=== PATIENT | male | born 1975 | race Caucasian/White ===

== ENCOUNTER 2018-04-18 17:29 | Emergency (ER) | payer BC ==
[2018-04-18 17:36] VITALS: BP 130/94
[2018-04-18] MEDS ORDERED: LEVO50TA86 PO (17:36)
[2018-04-18] MEDS ORDERED: DIPHTH/TETANUS/ACEL. PERTUSSIS IM ONLY ONE (17:50)
--- NOTE | 2018-04-18 18:09 | RADIOLOGY IMAGING REPORT ---
FACILITY: PATIENT NAME: Aubrey Calle : 1975 MR: [id number] V: [id number] EXAM DATE: ORDERING PHYSICIAN: BALBINA CLINTON TECHNOLOGIST: Location: [facility] [place] Patient: Aubrey Calle : 1975 Visit/Account:[id number] Date of Sevice: 04/18/2018 EXAMINATION: Left hand 3 views HISTORY: Puncture wound to the webspace between the first and second digits. COMPARISON: None. FINDINGS: No evidence of acute fracture or dislocation about the left hand. Normal alignment. Joint spaces ar e preserved. Soft tissue swelling along the web space of the left hand with a few bubbles of soft tissue air. No r adiopaque foreign body. IMPRESSION: 1. Soft tissue injury to the webspace of the left hand. 2. No underlying fracture or radiopaque foreign body. Report Dictated By: Tiburcio Santamaria MD at 04/18/2018 6:01 PM Report E-Signed By: Tiburcio Santamaria MD at 04/18/2018 6:05 PM WSN:[id number]
[2018-04-18] MEDS ORDERED: KETOROLAC 30 MG/ML VIAL IM ONE (18:10)
--- NOTE | 2018-04-18 18:13 | ER Report ---
History and Physical Time Seen By MD: 17:30 Hx. of Stated Complaint: CUT FROM SCREWDRIVER TO LEFT HAND. HPI/ROS CHIEF COMPLAINT: Left hand puncture HISTORY OF PRESENT ILLNESS: Patient is a 42-year-old male presents to ED with complaint of the left hand puncture that occurred about 30 minutes ago. He states that he accidentally punctured his hand with a screwdriver. He is having some pain in his left hand and left thumb area. He states that his last tetanus shot was 8-9 years ago. He has not noted any significant swelling at this point. He denies any fever. He does not believe that this went to put is uncertain. REVIEW OF SYSTEMS: Constitutional: No fever, no chills. Cardiovascular: No chest pain, no palpitations. Respiratory: No cough, no shortness of breath. Musculoskeletal: Left hand pain. See history of present illness. Skin: See history of present illness. Neurological: No headache. Allergies: Coded Allergies: No Known Drug Allergies (Unverified , 04/18/18) Home Meds Reported Medications Levothyroxine Sodium (LEVOTHYROXINE SODIUM) 50 Mcg Tablet, 50 MCG PO QDAY, TAB 04/18/18 Reviewed Nurses Notes: Yes Old Medical Records Reviewed: Yes Constitutional Vital Sign - Last 24 Hours 04/18/18 17:36 Temp 98.2 Pulse 65 Resp 18 B/P (MAP) 130/94 Pulse Ox 95 O2 Delivery Room Air Physical Exam General Appearance: [The patient is alert, has no immediate need for airway protection and no signs of toxicity.] [ ] [Eyes:] [Pupils equal and round no pallor or injection.] [ENT, Mouth:] [Mucous membranes are moist.] Respiratory: [There are no retractions, lungs are clear to auscultation.] Cardiovascular: [Regular rate and rhythm.] [ ] Gastrointestinal: [Abdomen is soft and non tender, no masses, bowel sounds normal.] [Neurological:] [ ] [Skin:] [Warm and dry, no rashes.] [Musculoskeletal:] [Neck is supple non tender.] [Extremities are nontender, nonswollen and have full range of motion.] [ ] [DIFFERENTIAL DIAGNOSIS: After history and physical exam differential diagnosis was considered for] [ ] Medical Decision Making EKG/Imaging Imaging Left Hand Xrays: IMPRESSION: 1. Soft tissue injury to the webspace of the left hand. 2. No underlying fracture or radiopaque foreign body. Report Dictated By: Tiburcio Santamaria MD at 04/18/2018 6:01 PM Report E-Signed By: Tiburcio Santamaria MD at 04/18/2018 6:05 PM ED Course/Re-evaluation ED Course Patient given Tdap. Will obtain left hand x-rays. 04/18/2018 6:31:45 pm - discussed x-rays with patient. This is all normal. Will prescribe Keflex for prophylaxis. Advised him to keep the area clean. He will monitor for signs and symptoms of infection. Decision to Disposition Date: Apr 18, 2018 Decision to Disposition Time: 18:39 Depart Departure Latest Vital Signs Vital Signs Date Time Temp Pulse Resp B/P (MAP) Pulse Ox O2 Delivery O2 Flow Rate FiO2 04/18/18 17:36 98.2 65 18 130/94 95 Room Air Impression: Primary Impression: Puncture wound of left hand Condition: Improved Disposition: HOME OR SELF-CARE Referrals: PALOMA DUONG MD (PCP) New Scripts Cephalexin 500 Mg Tab (KEFLEX 500 MG TAB) 500 Mg Tablet 500 MG PO TID, #21 TAB Prov: BALBINA CLINTON PA-C 04/18/18 Patient Instructions: Puncture Wound (ED) Additional Instructions: Monitor for signs symptoms of infection including redness, swelling, discharge, fever. Follow-up with primary care provider in 2-3 days. If having any worsening or concerning symptoms may return to the emergency department. Problem Qualifiers Primary Impression: Puncture wound of left hand Encounter type: initial encounter Foreign body presence: unspecified Qualified Codes: S61.432A - Puncture wound without foreign body of left hand, initial encounter BALBINA CLINTON PA-C Apr 18, 2018 18:13
[2018-04-18] MEDS ORDERED: BACITRACIN OINT 0.9 GM PKT TP ONE (18:30)
[2018-04-18] MEDS ORDERED: CEPH500T7 PO (18:40)
== END 2018-04-18 18:45 | disposition home or self-care (01) ==
LOC: ER 17:42
DX: S61.432A Puncture wound without foreign body of left hand, initial encounter (principal); W26.8XXA Contact with other sharp object(s), not elsewhere classified, initial encounter
CPT/HCPCS: 73130; 90471; 90715; 96372; 99283; C9399; J1885